=== PATIENT | female | born 1945 | race Caucasian/White ===

== ENCOUNTER 2020-09-14 13:36 | Emergency (ER) | payer MEDICARE, MEDICAID ==
[~2020-09-14] VITALS: Ht 162.6 cm; Wt 81.6 kg
[2020-09-14 13:36] VITALS: BP_SYST 123
[~2020-09-14 13:36] MED LIST: ANAS1TAB51 PO; ATEN-41 PO; BENA40TA8 PO; CEL20 PO; ELA10 PO; HYDR25TA4 PO; MORP30TA PO; MORP30TA59 PO; OXYB15TA19 PO
[2020-09-14 14:47] LABS: BASOPHILS # (AUTO) 0.1 K/uL (0.0-0.2); BASOPHILS % (AUTO) 0.5 % (0.0-2.0); EOSINOPHILS # (AUTO) 0.1 K/uL (0.0-0.4); EOSINOPHILS % (AUTO) 0.7 % (0.0-4.0); HEMATOCRIT 45.3 % (36-48); HEMOGLOBIN 13.7 g/dL (12.0-16.0); LYMPHOCYTES # (AUTO) 2.6 K/uL (1.0-5.5); LYMPHOCYTES % (AUTO) 16.7 % (20.5-51.5); MEAN CORPUSCULAR HEMOGLOBIN 24 pg (27-31); MEAN CORPUSCULAR HGB CONC 30 % (32-36); MEAN CORPUSCULAR VOLUME 80 fL (79.0-98.0); MONOCYTES # (AUTO) 0.9 K/uL (0.0-1.0); MONOCYTES % (AUTO) 5.6 % (1.7-9.3); NEUTROPHILS % (AUTO) 76.5 % (40.0-70.0); PLATELET COUNT (AUTO) 318 K/uL (130-430); RED BLOOD CELL COUNT(AUTO) 5.69 MIL/uL (4.2-6.2); RED CELL DISTRIBUTION WIDTH 14.9 % (9.0-15.0); WHITE BLOOD COUNT (AUTO) 15.7 K/uL (4.8-10.8)
[2020-09-14 15:05] LABS: ANION GAP 9 (5-15); CALCIUM 9.3 mg/dL (8.4-11.0); CHLORIDE 106 mmol/L (98-107); CREATININE 0.57 mg/dL (0.55-1.30); GLUCOSE 129 mg/dL (70-99); POTASSIUM 3.9 mmol/L (3.5-5.1); SODIUM SERUM 144 mmol/L (136-145); UREA NITROGEN, BLOOD 26 mg/dL (8-21)
[2020-09-14] MEDS ORDERED: NACL 0.9% 1,000 ML IV ONE ×2 (15:15→17:00)
[2020-09-14 15:19] LABS: ALANINE AMINOTRANSFERASE 26 U/L (12-78); ALBUMIN 3.3 g/dL (3.4-4.8); ASPARTATE AMINOTRANSFERASE 15 U/L (10-37); LIPASE 56 U/L (73-393); TOTAL BILIRUBIN 0.2 mg/dL (0.0-1.0)
[2020-09-14 16:00] LABS: BILIRUBIN,URINE NEGATIVE (NEGATIVE); BLOOD, URINE NEGATIVE (NEGATIVE); CLARITY/URINE CLOUDY (CLEAR); COLOR,URINE YELLOW (YELLOW); GLUCOSE,URINE NEGATIVE (NEGATIVE); KETONES,URINE NEGATIVE (NEGATIVE); LEUKOCYTE ESTERASE ,URINE 3+ (NEGATIVE); NITRITE, URINE NEGATIVE (NEGATIVE); PH,URINE 8.5 (5.0-8.0); PROTEIN URINE TRACE (NEGATIVE); UROBILINOGEN,URINE 0.2 (0.2-1.0)
[2020-09-14 16:15] LABS: BACTERIA,URINE MANY /HPF (None Seen); MUCUS,URINE None Seen /LPF (None Seen); RBC,URINE 0-3 /HPF (0-3); TRIPLE PHOSPHATE CRYSTAL,UR 0-10 /HPF (None Seen); URINE AMORPHOUS PHOSPHATES 3+ /HPF (None Seen)
[2020-09-14] MEDS ORDERED: cefTRIAXone 1 GM in D5W 50 ML IV ONE (17:00)
[2020-09-14] MEDS ORDERED: KETOROLAC TROMETHAMINE 15 MG VIAL IVP ONE (17:00)
[2020-09-14] MEDS ORDERED: cefTRIAXone 1 GM VIAL ONE (17:04)
[2020-09-14] MEDS ORDERED: MORPHINE 4 MG INJ. 4 MG/ML VIAL IVP ONE (23:45)
[2020-09-14] MEDS ORDERED: DIPHENHYDRAMINE INJ 50 MG/ML VIAL IVP ONE (23:45)
[2020-09-15 01:53] VITALS: BP_SYST 119
== END 2020-09-15 01:53 | disposition short-term general hospital (02) ==
LOC: SED 13:36
DX: N39.0 Urinary tract infection, site not specified (principal); I10 Essential (primary) hypertension; Z79.899 Other long term (current) drug therapy; Z88.8 Allergy status to other drugs, medicaments and biological substances; Z20.822 Contact with and (suspected) exposure to COVID-19
CPT/HCPCS: 36415; 80053; 81000; 83605; 83690; 84484; 85025; 87040; 87086; 87426; 93005; 96361; 96365; 96375 ×2; 99285; J0696; J1200; J1885; J2270; J7030

== ENCOUNTER 2021-01-20 02:57 | Emergency (ER) | payer MEDICARE, MEDICAID, SELFPAY ==
[2021-01-20 02:57] VITALS: BP_SYST 121
--- NOTE | 2021-01-20 02:57 | NUR ---
Patient to ER bed 2 to gown for evaluation. Side rails up. Report given to self.
--- NOTE | 2021-01-20 03:15 | NUR ---
ER Dr. martinez at bedside examining patient.
[2021-01-20] MEDS ORDERED: NACL 0.9% 1,000 ML IV ONE ×2 (03:30→05:00)
--- NOTE | 2021-01-20 03:52 | NUR ---
Dr. Jacobs at bedside for rectal exam , assisted by me.
--- NOTE | 2021-01-20 03:55 | NUR ---
Blood for labwork drawn from cadd operator. Patient tolerated well.
[2021-01-20 04:19] LABS: BASOPHILS # (AUTO) 0.1 K/uL (0.0-0.2); BASOPHILS % (AUTO) 0.4 % (0.0-2.0); EOSINOPHILS # (AUTO) 0.2 K/uL (0.0-0.4); EOSINOPHILS % (AUTO) 1.8 % (0.0-4.0); HEMATOCRIT 38.8 % (36-48); HEMOGLOBIN 12.3 g/dL (12.0-16.0); LYMPHOCYTES # (AUTO) 3.6 K/uL (1.0-5.5); LYMPHOCYTES % (AUTO) 26.7 % (20.5-51.5); MEAN CORPUSCULAR HEMOGLOBIN 23 pg (27-31); MEAN CORPUSCULAR HGB CONC 32 % (32-36); MEAN CORPUSCULAR VOLUME 73 fL (79.0-98.0); MONOCYTES # (AUTO) 1.2 K/uL (0.0-1.0); MONOCYTES % (AUTO) 8.9 % (1.7-9.3); NEUTROPHILS # (AUTO) 8.3 K/uL (1.8-7.7); NEUTROPHILS % (AUTO) 62.2 % (40.0-70.0); PLATELET COUNT (AUTO) 274 K/uL (130-430); RED BLOOD CELL COUNT(AUTO) 5.31 MIL/uL (4.2-6.2); RED CELL DISTRIBUTION WIDTH 15.8 % (9.0-15.0); WHITE BLOOD COUNT (AUTO) 13.4 K/uL (4.8-10.8)
--- NOTE | 2021-01-20 04:45 | NUR ---
# 20 gauge angiocath placed to right. Use of asceptic technique. Opsite placed over site. Blood return noted. Flushed with 10 cc of normal saline. No evidence of infiltration noted. Patient tolerated well.
--- NOTE | 2021-01-20 05:00 | NUR ---
Medicated per MD orders. IVF NS 0.9% x2 infusing with no s/s of infiltration at this time. Will cont to monitor and observe for any adverse reaction. Continue to monitor b/p.
[2021-01-20 05:54] LABS: PROTHROMBIN TIME 10.8 SECS (9.5-12.5)
--- NOTE | 2021-01-20 06:11 | NUR ---
After x1 liter of NS bolus, patient b/p noted to increased to 113/60 and noted to have pox of 99% on 2l n/c. Repositioned patient for comfort. Bed to low position sr up, continue to monitor.
[2021-01-20 06:47] LABS: POTASSIUM 4.7 mmol/L (3.5-5.1); SODIUM SERUM 136 mmol/L (136-145)
[2021-01-20 06:48] LABS: ANION GAP 1 (5-15); CALCIUM 9.6 mg/dL (8.4-11.0); CHLORIDE 100 mmol/L (98-107); GLUCOSE 123 mg/dL (70-99)
[2021-01-20 06:50] LABS: UREA NITROGEN, BLOOD 42 mg/dL (8-21)
[2021-01-20 06:51] LABS: ALANINE AMINOTRANSFERASE 24 U/L (12-78); ALBUMIN 3.3 g/dL (3.4-4.8); ASPARTATE AMINOTRANSFERASE 15 U/L (10-37); LIPASE 42 U/L (73-393); TOTAL BILIRUBIN 0.3 mg/dL (0.0-1.0)
--- NOTE | 2021-01-20 06:51 | NUR ---
# 16 FR Cartwright catheter with use of sterile technique. Immediate return of 200 cc yellow urine noted. Bedside drainage bag placed below level of bladder. Urine sample collected and sent to lab. Pt tolerated procedure .
--- NOTE | 2021-01-20 07:35 | NUR ---
Assumed care of pt., POC reviewed, urine dip done per Dr. Omar webber
--- NOTE | 2021-01-20 07:55 | NUR ---
Dr. Gómez, [facility] Doc, called back to speak to Dr. Nelson regarding pt status.
[2021-01-20] MEDS ORDERED: DOCU-144 PO (08:15)
--- NOTE | 2021-01-20 08:22 | NUR ---
Dr. Nelson discussed discharge with pt., [facility] refused admit
[2021-01-20] MEDS ORDERED: HYDROcodone/ACETAMIN 5-325 MG TAB (NORCO/ VICODIN) PO ONE (09:15)
[2021-01-20 10:22] LABS: BILIRUBIN,URINE NEGATIVE (NEGATIVE); BLOOD, URINE NEGATIVE (NEGATIVE); CLARITY/URINE CLEAR (CLEAR); COLOR,URINE YELLOW (YELLOW); GLUCOSE,URINE NEGATIVE (NEGATIVE); KETONES,URINE NEGATIVE (NEGATIVE); LEUKOCYTE ESTERASE ,URINE TRACE (NEGATIVE); NITRITE, URINE NEGATIVE (NEGATIVE); PH,URINE 6.5 (5.0-8.0); PROTEIN URINE NEGATIVE (NEGATIVE); UROBILINOGEN,URINE 0.2 (0.2-1.0)
--- NOTE | 2021-01-20 11:43 | NUR ---
working on ambulance transfer home, spoke with pt. son he will be home by [id number]
--- NOTE | 2021-01-20 12:29 | NUR ---
[facility] CALLED AND STATED A CHAPTER RELATIONS ADMINISTRATOR WILL BE HERE ETA [id number]
[2021-01-20 12:40] LABS: BACTERIA,URINE None Seen /HPF (None Seen); RBC,URINE 0-3 /HPF (0-3)
--- NOTE | 2021-01-20 12:43 | NUR ---
pts. son called stated he might be a few minutes late for the 1330 drop off home, notified him ambulance due here at 1330, he requested to be called once ambulance arrives
--- NOTE | 2021-01-20 13:32 | NUR ---
[facility] HERE TO TAKE PT. CHARGE NURSE GAVE REPORT
--- NOTE | 2021-01-20 13:37 | NUR ---
attempted to call pts. son, call went straight to voicemail, pt. left message on his voicemail
[2021-01-20 13:42] VITALS: BP_SYST 95
--- NOTE | 2021-01-20 13:45 | NUR ---
Patient given written and verbal discharge instructions and verbalizes understanding. Dr. Nelson discussed with patient the results and treatment provided. Patient in stable condition. ID arm band removed. IV catheter removed intact and dressing applied, no active bleeding. Rx of Colace given. Patient educated on pain management and to follow up with PMD. Pain Scale 3. Opportunity for questions provided and answered. Medication side effect fact sheet provided.
== END 2021-01-20 13:45 | disposition home or self-care (01) ==
LOC: SED 02:57
DX: K59.00 Constipation, unspecified (principal); R10.9 Unspecified abdominal pain; I10 Essential (primary) hypertension; Z88.8 Allergy status to other drugs, medicaments and biological substances; Z79.899 Other long term (current) drug therapy
CPT/HCPCS: 36415; 71045; 74176; 76376; 80053; 81000; 81003; 82272; 83605; 83690; 85025; 85610; 85730; 87040; 96360; 99285; J7030

== ENCOUNTER 2021-05-14 20:00 | Emergency (ER) | payer MEDICARE, MEDICAID ==
[~2021-05-14] VITALS: Ht 162.6 cm; Wt 77.1 kg
[~2021-05-14 20:00] MED LIST changes: -BENA40TA8 PO; +BENA40TA89 PO; +DOCU-144 PO
[2021-05-14 20:10] VITALS: BP_SYST 156
--- NOTE | 2021-05-14 20:40 | NUR ---
Placed in room 2 . Placed on property assessment monitor, blood pressure machine and pulse oximeter. To gown for exam. Side rails up. Report given to EDUARDO ZHU(REG).
--- NOTE | 2021-05-14 20:43 | NUR ---
ER at bedside examining patient.
--- NOTE | 2021-05-14 21:00 | NUR ---
pt is ALOx4. pt laron with abdominal pain. No sign of distress noted.
[2021-05-14 21:27] LABS: BASOPHILS # (AUTO) 0.1 K/uL (0.0-0.2); BASOPHILS % (AUTO) 0.5 % (0.0-2.0); EOSINOPHILS % (AUTO) 0.2 % (0.0-4.0); HEMATOCRIT 41.5 % (36-48); HEMOGLOBIN 13.3 g/dL (12.0-16.0); LYMPHOCYTES # (AUTO) 1.9 K/uL (1.0-5.5); LYMPHOCYTES % (AUTO) 15.8 % (20.5-51.5); MEAN CORPUSCULAR HEMOGLOBIN 24 pg (27-31); MEAN CORPUSCULAR HGB CONC 32 % (32-36); MEAN CORPUSCULAR VOLUME 73 fL (79.0-98.0); MONOCYTES # (AUTO) 1.5 K/uL (0.0-1.0); MONOCYTES % (AUTO) 12.6 % (1.7-9.3); NEUTROPHILS # (AUTO) 8.5 K/uL (1.8-7.7); NEUTROPHILS % (AUTO) 70.9 % (40.0-70.0); PLATELET COUNT (AUTO) 268 K/uL (130-430); RED BLOOD CELL COUNT(AUTO) 5.65 MIL/uL (4.2-6.2); RED CELL DISTRIBUTION WIDTH 17.8 % (9.0-15.0)
[2021-05-14 22:03] LABS: ALANINE AMINOTRANSFERASE 37 U/L (12-78); ALBUMIN 3.3 g/dL (3.4-4.8); ANION GAP 9 (5-15); ASPARTATE AMINOTRANSFERASE 19 U/L (10-37); CALCIUM 10.1 mg/dL (8.4-11.0); CHLORIDE 100 mmol/L (98-107); CREATININE 0.37 mg/dL (0.55-1.30); GLUCOSE 140 mg/dL (70-99); POTASSIUM 3.9 mmol/L (3.5-5.1); SODIUM SERUM 138 mmol/L (136-145); TOTAL BILIRUBIN 0.2 mg/dL (0.0-1.0); UREA NITROGEN, BLOOD 27 mg/dL (8-21)
[2021-05-14 22:11] LABS: LIPASE 48 U/L (73-393)
--- NOTE | 2021-05-15 | NUR ---
pt had urine sample and was changed at sometimes. pt is incontinence and continience.
[2021-05-15] MEDS ORDERED: MORPHINE 2 MG/ML INJ. SYRINGE IM ONE (00:15)
[2021-05-15] MEDS ORDERED: HYDROcodone/ACETAMIN 5-325 MG TAB (NORCO/ VICODIN) PO ONE (01:45)
[2021-05-15] MEDS ORDERED: HYDROcodone/ACETAMIN 5-325 MG TAB (NORCO/ VICODIN) ONE ×2 (01:59→02:14)
[2021-05-15 02:11] LABS: BILIRUBIN,URINE NEGATIVE (NEGATIVE); BLOOD, URINE 1+ (NEGATIVE); COLOR,URINE YELLOW (YELLOW); GLUCOSE,URINE NEGATIVE (NEGATIVE); KETONES,URINE NEGATIVE (NEGATIVE); LEUKOCYTE ESTERASE ,URINE 2+ (NEGATIVE); NITRITE, URINE POSITIVE (NEGATIVE); PROTEIN URINE TRACE (NEGATIVE); UROBILINOGEN,URINE 0.2 (0.2-1.0)
[2021-05-15 02:24] LABS: CLARITY/URINE HAZY (CLEAR)
[2021-05-15] MEDS ORDERED: NITROFURANTOIN MONOHYD/M-CRYST 100 MG CAPSULE (MacroBID) PO ONE (02:45)
[2021-05-15 03:11] LABS: BACTERIA,URINE MODERATE /HPF (None Seen); URINE SULFO SALICYLIC ACID 2+ (NEGATIVE)
[2021-05-15 03:12] LABS: MUCUS,URINE 2+ /LPF (None Seen); TRICHOMONAS,URINE None Seen /HPF (None Seen); YEAST,URINE None Seen /HPF (None Seen)
[2021-05-15] MEDS ORDERED: NITR-85 PO (05:15)
--- NOTE | 2021-05-15 05:26 | NUR ---
Patient given written and verbal discharge instructions and verbalizes understanding. ER MD discussed with patient the results and treatment provided. Patient in stable condition. ID arm band removed. Rx of macrobid given. Patient educated on pain management and to follow up with PMD. Pain Scale 2/10. Opportunity for questions provided and answered. Medication side effect fact sheet provided.
[2021-05-15 05:27] VITALS: BP_SYST 141
--- NOTE | 2021-05-17 13:53 | NUR ---
PROVIDED WITH URINE CULTURE RESULTS FROM THE LAB, URINE + FOR E.COLI. PT TREATED WITH MACROBID IN ER AND SENT HOME WITH RX FOR MACROBID. PER ER DR. QUIROZ NO FURTHER ACTION IS NEEDED ORGANISM IS SENSATIVE TO ANTIBIOTIC GIVEN.
== END 2021-05-15 05:27 | disposition home or self-care (01) ==
LOC: SED 20:00
DX: N39.0 Urinary tract infection, site not specified (principal); R10.32 Left lower quadrant pain; I10 Essential (primary) hypertension; J44.9 Chronic obstructive pulmonary disease, unspecified; Z79.899 Other long term (current) drug therapy; Z88.8 Allergy status to other drugs, medicaments and biological substances
CPT/HCPCS: 36415; 71045; 74176; 76376; 80053; 81000; 83690; 84484; 85025; 87086; 93005; 96372; 99285; J2270

== ENCOUNTER 2022-10-10 16:07 | Emergency (ER) | payer MEDICARE, OTHER ==
[~2022-10-10] VITALS: Ht 162.6 cm; Wt 108.9 kg
[2022-10-10 16:07] VITALS: BP_SYST 143; PULSE 82; RESP 18; TEMP 98.2; O2SAT 97
[~2022-10-10 16:07] MED LIST changes: +NITR-85 PO
[2022-10-10 17:12] LABS: BASOPHILS # (AUTO) 0.1 K/uL (0.0-0.2); BASOPHILS % (AUTO) 0.5 % (0.0-2.0); EOSINOPHILS # (AUTO) 0.3 K/uL (0.0-0.4); HEMATOCRIT 41.6 % (36-48); HEMOGLOBIN 13.1 g/dL (12.0-16.0); LYMPHOCYTES % (AUTO) 22.5 % (20.5-51.5); MEAN CORPUSCULAR HEMOGLOBIN 25 pg (27-31); MEAN CORPUSCULAR HGB CONC 32 % (32-36); MEAN CORPUSCULAR VOLUME 80 fL (79.0-98.0); MONOCYTES # (AUTO) 1.3 K/uL (0.0-1.0); MONOCYTES % (AUTO) 10.3 % (1.7-9.3); NEUTROPHILS # (AUTO) 8.5 K/uL (1.8-7.7); NEUTROPHILS % (AUTO) 64.7 % (40.0-70.0); PLATELET COUNT (AUTO) 318 K/uL (130-430); RED BLOOD CELL COUNT(AUTO) 5.19 MIL/uL (4.2-6.2); RED CELL DISTRIBUTION WIDTH 14.8 % (9.0-15.0); WHITE BLOOD COUNT (AUTO) 13.1 K/uL (4.8-10.8)
[2022-10-10 17:18] LABS: ANION GAP 6 (5-15); CARBON DIOXIDE 29 mmol/L (23-29); CHLORIDE 103 mmol/L (98-107); CREATININE 0.58 mg/dL (0.55-1.30); GLUCOSE 95 mg/dL (74-106); POTASSIUM 3.9 mmol/L (3.5-5.1); SODIUM SERUM 138 mmol/L (136-145); UREA NITROGEN, BLOOD 24 mg/dL (8-21)
[2022-10-10 17:24] LABS: CALCIUM 9.4 mg/dL (8.4-11.0)
[2022-10-10 17:37] LABS: BILIRUBIN,URINE NEGATIVE (NEGATIVE); BLOOD, URINE NEGATIVE (NEGATIVE); CLARITY/URINE CLEAR (CLEAR); COLOR,URINE YELLOW (YELLOW); GLUCOSE,URINE TRACE (NEGATIVE); KETONES,URINE NEGATIVE (NEGATIVE); LEUKOCYTE ESTERASE ,URINE NEGATIVE (NEGATIVE); NITRITE, URINE NEGATIVE (NEGATIVE); PROTEIN URINE NEGATIVE (NEGATIVE); UROBILINOGEN,URINE 0.2 (0.2-1.0)
[2022-10-10] MEDS ORDERED: HYDROcodone/ACETAMIN 5-325 MG TAB (NORCO/ VICODIN) PO ONE (20:15)
[2022-10-10 21:39] VITALS: BP_SYST 156; PULSE 76; RESP 19; TEMP 98.8; O2SAT 95
== END 2022-10-10 21:39 | disposition short-term general hospital (02) ==
LOC: SED 16:07
DX: L89.319 Pressure ulcer of right buttock, unspecified stage (principal); N20.9 Urinary calculus, unspecified; I10 Essential (primary) hypertension; E11.9 Type 2 diabetes mellitus without complications; Z85.3 Personal history of malignant neoplasm of breast; Z88.8 Allergy status to other drugs, medicaments and biological substances; Z79.899 Other long term (current) drug therapy; Z20.822 Contact with and (suspected) exposure to COVID-19
CPT/HCPCS: 36415; 71045; 80048; 81003; 82962; 85025; 99285